=== PATIENT | female | born 1960 | race Hispanic/Latino ===

== ENCOUNTER 2018-10-11 08:03 | Day surgery (SDC) | payer BC ==
[2018-10-08 12:25] VITALS: BMI 38.6
[2018-10-11 09:09] LABS: #Basophils 0.1 thou/uL (0.0-0.2); #Eosinphils 0.2 thou/uL (0.0-0.7); #Lymphocytes 3.3 thou/uL (1.20-3.40); #Monocytes 0.4 thou/uL (0.11-0.59); #Neutrophils 3.5 thou/uL (1.40-6.50); %Eosinophils 2.4 % (0.0-10.0); %Lymphocytes 43.5 % (21.0-51.0); %Monocytes 5.9 % (0.0-10.0); %Neutrophils 47.2 % (42.0-75.0); Hemoglobin 14.1 g/dL (12.0-16.0); Mean Corpuscular HGB CONC 32.5 g/dL (32.0-36.0); Mean Corpuscular Hemoglobin 30.2 pg (27.0-31.0); Mean Corpuscular Volume 92.9 fL (78.0-98.0); Mean Platelet Volume 7.6 fL (7.4-10.4); Platelet Count 225 thou/uL (130-400); RBC Distribution Width 12.1 % (11.5-14.5); Red Blood Cell (RBC) Count 4.68 mill/uL (4.20-5.40); White Blood Cell (WBC) Count 7.5 thou/uL (4.8-10.8)
[2018-10-11] MEDS ORDERED: Sodium Chloride 0.9% 10 ML ONE (10:42)
[2018-10-11 11:00] LABS: Chloride 103 mmol/L (98-107); Sodium 141 mmol/L (136-145)
[2018-10-11 11:11] LABS: Anion Gap 13 mmol/L (10-20); Carbon Dioxide 30 mmol/L (22-29); Glucose 102 mg/dL (70-105)
[2018-10-11 11:12] LABS: BUN (Urea Nitrogen) 17 mg/dL (9.8-20.1); Calc. Creatinine Clearance 138 mL/min (70-130); Estimated GFR-MDRD 81
[2018-10-11] MEDS ORDERED: Fentanyl 100 MCG/2 ML VIAL ONE ×3 (11:23→14:04)
[2018-10-11] MEDS ORDERED: HYDROmorphone 2 MG/ML VIAL SLOW IVP PRN (12:45)
[2018-10-11] MEDS ORDERED: Promethazine HCl 25 MG/ML VIAL IM/IV PRN (12:45)
[2018-10-11] MEDS ORDERED: Ondansetron HCl/PF 4 MG/2 ML Vial IVP PRN (12:45)
[2018-10-11] MEDS ORDERED: diphenhydrAMINE 50 MG/ML VIAL IVP PRN (12:58)
[2018-10-11] MEDS ORDERED: Mag-Al 1200 mg/1200 mg/30 ML UDCUP PO PRN (12:58)
[2018-10-11] MEDS ORDERED: Promethazine HCl 25 MG/ML VIAL IM PRN (12:58)
[2018-10-11] MEDS ORDERED: tiZANidine HCl 4 MG TAB PO PRN (12:58)
[2018-10-11] MEDS ORDERED: HYDROcodone/Acetaminophen 10/325 mg Tablet PO PRN (12:58)
[2018-10-11] MEDS ORDERED: traMADol HCl 50 MG TAB PO PRN (12:58)
[2018-10-11] MEDS ORDERED: Promethazine 25 MG TAB PO PRN (12:58)
[2018-10-11] MEDS ORDERED: Meperidine HCl/PF 25 MG/ML VIAL SLOW IVP PRN (12:58)
[2018-10-11] MEDS ORDERED: diphenhydrAMINE 25 MG CAP PO PRN (12:58)
[2018-10-11] MEDS ORDERED: Promethazine HCl 12.5 MG SUPP PR PRN (12:58)
[2018-10-11] MEDS ORDERED: Milk Of Magnesia 30 ML UDCUP PO PRN (12:58)
[2018-10-11] MEDS ORDERED: Ondansetron PF 4 MG/2 ML Vial IVP PRN (12:59)
[2018-10-11] MEDS ORDERED: HYDROmorphone 2 MG/ML VIAL ONE (13:02)
[2018-10-11] MEDS ORDERED: Promethazine HCl 25 MG/ML VIAL ONE (13:22)
[2018-10-11] MEDS ORDERED: Glycopyrrolate 0.2 MG/ML 5 ML SYRINGE ONE (13:39)
[2018-10-11] MEDS ORDERED: Rocuronium Bromide 10 MG/ML (10ML VIAL) ONE (13:39)
[2018-10-11] MEDS ORDERED: Ondansetron PF 4 MG/2 ML Vial ONE (13:39)
[2018-10-11] MEDS ORDERED: PROPOFOL 200 MG/20 ML VIAL ONE (13:39)
[2018-10-11] MEDS ORDERED: Lidocaine 1% PF 5 ML VIAL ONE (13:39)
[2018-10-11] MEDS ORDERED: Non-Formulary Medication 1 EACH PO PRN (13:56)
[2018-10-11] MEDS: CEFAZOLIN 2 GM in Premix Bag 1 BAG IVPB SCH (16:11)
[2018-10-11] MEDS: Sodium Chloride 0.9% 1,000 ML IV SCH (16:12)
[2018-10-11] MEDS: Ketorolac Tromethamine 30 MG/ML VIAL IVP SCH (16:23)
[2018-10-11] MEDS ORDERED: [UNRECOGNIZED DRUG - OTHER] PO SCH (17:00)
[2018-10-11] MEDS: HYDROcodone/Acetaminophen 10/325 mg Tablet PO PRN ×2 (17:54→22:16)
--- NOTE | 2018-10-11 18:50 | OP ---
DATE OF PROCEDURE: 10/11/2018 UPS DRIVER: Yunior. PROCEDURES PERFORMED: Left L4-L5 laminectomy, facetectomy, foraminotomy, and diskectomy; interbody arthrodesis; intervertebral biomechanical device; local morselized autograft; demineralized bone matrix; posterolateral arthrodesis; pedicle screw instrumentation at left L4-L5. DESCRIPTION OF PROCEDURE: The patient was brought to the operating room and intubated. She was rolled in a prone position on gel-filled chest rolls. The previous incisions were opened and extended, and the L4-L5 region was identified. The previous scar at L4-L5 on the left was also identified. We performed left L4-L5 laminectomy, facetectomy, foraminotomy, and diskectomy. The left L5 and left L4 nerve roots were completely decompressed. The disk itself was incised and debrided of multiple fragments, and the bony endplates were decorticated for the purpose of arthrodesis. An appropriate-sized intervertebral biomechanical PEEK device was brought into the field. It was filled with demineralized bone matrix and local morselized autograft and tapped in place securely at L4-L5. Next, pedicle screws were placed at left L4 and left L5 using lateral fluoroscopic guidance, and the positioning was confirmed by x-ray. Felix was secured between the screws, connected by nuts, which were final tightened. The wound was then extensively irrigated. The maximum hemostasis was secured. Combination of demineralized bone matrix and local morselized autograft was laid over the lamina and posterolateral surfaces for the purpose of arthrodesis. Vancomycin powder was applied, and the wound was then closed in anatomic layers. Job ID: [id number]
[2018-10-11] MEDS ORDERED: Thyroid 30 MG TAB PO SCH (21:00)
[2018-10-11] MEDS ORDERED: metFORMIN 500 MG TAB PO SCH (21:00)
[2018-10-11] MEDS ORDERED: Meloxicam 15 MG TAB PO SCH (21:00)
[2018-10-11] MEDS: traMADol HCl 50 MG TAB PO PRN (21:11)
[2018-10-12] MEDS: Ketorolac Tromethamine 30 MG/ML VIAL IVP SCH ×3 (00:17→11:01)
[2018-10-12] MEDS: CEFAZOLIN 2 GM in Premix Bag 1 BAG IVPB SCH (00:18)
[2018-10-12] MEDS: HYDROcodone/Acetaminophen 10/325 mg Tablet PO PRN ×2 (02:41→14:46)
[2018-10-12] MEDS: Sodium Chloride 0.9% 1,000 ML IV SCH (03:38)
[2018-10-12] MEDS ORDERED: Dexamethasone 10 MG/ML VIAL SLOW IVP SCH (08:15)
[2018-10-12] MEDS ORDERED: DULoxetine 60 MG CAP PO SCH (09:00)
[2018-10-12] MEDS: traMADol HCl 50 MG TAB PO PRN (10:59)
[2018-10-12 12:04] VITALS: TEMP 98.3
[2018-10-12 14:44] VITALS: BP 94/64
--- NOTE | 2018-10-13 03:55 | DIS ---
DATE OF ADMISSION: 10/11/2018 DATE OF DISCHARGE: 10/12/2018 HOSPITAL COURSE: The patient is a 58-year-old female, status post L4-L5 decompression and fusion. Following the surgery, she was transitioned to the Med/Surg floor. She reports she continues to have left leg pain and some subjective weakness in a similar pattern prior to her surgery. This is relatively unchanged. She denies any bowel or bladder issues. She is tolerating a p.o. diet. She has been up ambulatory back and forth to the bathroom without any difficulty. She has had no incisional drainage issues overnight. The patient is awake, alert, in no acute distress. She has free active range of motion of bilateral upper extremities and right lower extremity. She is somewhat limited by pain in the left lower extremity. Her reflexes are symmetric. Her incision is dry and intact. Plan to treat the patient with 10 mg of IV Decadron for suspected postop radicular pain. We discussed home later today and the patient is minimal to that plan. She has been provided with medications for pain from her pain management physicians. I have discussed home care precautions. We will dismiss later today. Job ID: [id number]
== END 2018-10-12 15:20 | disposition home or self-care (01) ==
LOC: SDC 08:03 → SURG B 12:45 → SDC 10-12 15:20
PROVIDERS: ATTEND Neurological Surgery
PROC: 0ST20ZZ Resection of Lumbar Vertebral Disc, Open Approach (ICD-10-PCS; principal; 2018-10-11)
PROC: 0SG00J1 Fusion of Lumbar Vertebral Joint with Synthetic Substitute, Posterior Approach, Posterior Column, Open Approach (ICD-10-PCS; principal; 2018-10-11)
DX: M54.16 Radiculopathy, lumbar region (principal); E11.9 Type 2 diabetes mellitus without complications; Z79.1 Long term (current) use of non-steroidal anti-inflammatories (NSAID); Z79.84 Long term (current) use of oral hypoglycemic drugs; Z79.899 Other long term (current) drug therapy; Z88.2 Allergy status to sulfonamides; Z88.5 Allergy status to narcotic agent; Z88.6 Allergy status to analgesic agent; Z98.890 Other specified postprocedural states
CPT/HCPCS: 36415; 36416; 76000; 80048; 85025; 90471; 90732; 93005; 93010; C1713; C1768; G0009; J0690; J1100; J1170; J1885; J2001; J2175; J2405; J2550; J2704; J3010; J3370; J3490

== ENCOUNTER 2018-10-27 09:53 | Outpatient (CLI) | payer BC ==
--- NOTE | 2018-10-27 11:40 | RAD ---
LUMBAR SPINE TWO VIEWS: INDICATIONS: Low back pain. COMPARISON: None. FINDINGS: There are left-sided pedicular screws at L4 and L5 with an interconnecting bowen. There is an interver tebral disk cage at L4-L5. There is moderate disk degenerative disease at L4-L5 and at L5-S1. Spina l alignment is preserved. No acute fracture is evident. IMPRESSION: Postoperative lumbar spine with mild to moderate spondylosis. POS: [facility]
== END 2018-10-27 09:54 | disposition home or self-care (01) ==
LOC: TBSIIMAG 09:53
PROVIDERS: ATTEND Neurological Surgery
DX: M47.26 Other spondylosis with radiculopathy, lumbar region (principal); Z98.890 Other specified postprocedural states
CPT/HCPCS: 72100